=== PATIENT | female | born 1980 | race Caucasian/White ===

== ENCOUNTER 2022-07-13 12:43 | Emergency (ER) | payer OTHER, SELFPAY ==
[2022-07-13 13:12] VITALS: BP 147/87; PULSE 100; RESP 20; TEMP 37.5; O2SAT 99
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
== END 2022-07-13 14:57 | disposition home or self-care (01) ==
PROVIDERS: Emergency Provider Nurse Practitioner; PCP Family Medicine
DX: J32.9 Chronic sinusitis, unspecified (principal); M06.9 Rheumatoid arthritis, unspecified
CPT/HCPCS: 99213; G0463